=== PATIENT | male | born 1965 | race Caucasian/White ===

== ENCOUNTER 2017-05-01 17:16 | Observation (INO) | payer OTHER, SELFPAY ==
[~2017-05-01 17:16] MED LIST: Iopamidol 370 76% 100 ML VIAL ONE
[2017-05-01 18:44] LABS: #Basophils 0.1 thou/uL (0.0-0.2); #Eosinphils 0.1 thou/uL (0.0-0.7); #Lymphocytes 1.7 thou/uL (1.20-3.40); #Monocytes 0.7 thou/uL (0.11-0.59); #Neutrophils 3.6 thou/uL (1.40-6.50); %Eosinophils 2.2 % (0.0-10.0); %Lymphocytes 26.8 % (21.0-51.0); %Monocytes 10.8 % (0.0-10.0); Hematocrit 47.1 % (42.0-52.0); Mean Platelet Volume 6.5 fL (7.4-10.4); Red Blood Cell (RBC) Count 4.77 mill/uL (4.70-6.10); White Blood Cell (WBC) Count 6.2 thou/uL (4.8-10.8)
[2017-05-01 18:51] LABS: Prothrombin Time 13.2 SEC (12.0-14.7)
[2017-05-01 19:11] LABS: ALT (SGPT) 17 U/L (8-55); AST (SGOT) 18 U/L (5-34); Alkaline Phosphatase 94 U/L (40-150); Anion Gap 14 mmol/L (10-20); BUN (Urea Nitrogen) 15 mg/dL (8.4-25.7); Bilirubin, Total 0.5 mg/dL (0.2-1.2); Calc. Creatinine Clearance 0 mL/min (70-130); Calcium 9.6 mg/dL (7.8-10.44); Carbon Dioxide 23 mmol/L (22-29); Chloride 108 mmol/L (98-107); Estimated GFR-MDRD Greater than 90; Globulin 3.2 g/dL (2.4-3.5); Protein, Total 7.3 g/dL (6.0-8.3)
[2017-05-01 19:16] LABS: Troponin I Less than 0.010 ng/mL (< 0.028)
--- NOTE | 2017-05-01 21:37 | ULT ---
RIGHT LOWER EXTREMITY VENOUS ULTRASOUND: 05/01/17 COMPARISON: None. HISTORY: Right leg pain for two months and right leg is getting progressively more edematous. TECHNIQUE: Multiplanar dietz scale and color doppler images are obtained in a right lower extremity ultrasound. Spectral analysis of the doppler waveforms were performed. FINDINGS: The right common femoral vein, profunda femoral vein, superficial femoral vein, and popliteal vein a re normal in appearance without visible thrombus. These vessels demonstrate normal compression, flow and augmentation. The posterior tibial vein and greater saphenous vein are also patent. IMPRESSION: No evidence of right lower extremity DVT. POS: [facility]
--- NOTE | 2017-05-01 22:15 | CT ---
CTA OF THE CHEST WITH CONTRAST: 05/01/17 COMPARISON: None. HISTORY: Dyspnea. TECHNIQUE: Multiple contiguous axial images were obtained in a CTA of the chest with contrast per pulmonary emb olism protocol. 3D oblique MIP reformats and direct coronal reformats were performed. FINDINGS: The pulmonary arteries are well opacified without filling defects to suggest pulmonary emboli. The h eart is normal in size without focal cardiac abnormality. No hilar or mediastinal lymphadenopathy ar e seen. No pneumothorax or pleural effusion are seen. Emphysematous changes are seen in the lung apices. No suspicious pulmonary nodule is seen. No focal infiltrates are seen in the lungs. The visualized subdiaphragmatic structures are unremarkable. The osseous structures and chest wall s oft tissues are unremarkable. IMPRESSION: 1. No evidence of pulmonary thromboembolism. 2. Emphysema. POS: N[facility]
[2017-05-01 22:16] LABS: Hemoglobin A1c 5.2 % (4.0-6.0)
[2017-05-01 22:24] LABS: Troponin I Less than 0.010 ng/mL (< 0.028)
[2017-05-01] MEDS ORDERED: Acetaminophen 325 MG TAB PO PRN ×2 (22:39→22:50)
[2017-05-01] MEDS ORDERED: Nitroglycerin 0.4 MG TAB (25 Tab Bottle) PO PRN (22:50)
[2017-05-01] MEDS ORDERED: HYDROcodone/Acetaminophen 5/325 mg Tablet PO PRN (22:50)
[2017-05-01] MEDS ORDERED: Bisacodyl 5 MG TAB PO PRN (22:50)
[2017-05-01] MEDS ORDERED: Ondansetron ODT 4 MG TAB PO PRN (22:50)
[2017-05-01 23:07] VITALS: BMI 24.5
[2017-05-02 00:02] LABS: Phosphorus 2.7 mg/dL (2.3-4.7)
[2017-05-02] MEDS ORDERED: ADENOSINE 60 MG/20 ML VIAL ONE (00:50)
[2017-05-02 00:55] LABS: Troponin I Less than 0.010 ng/mL (< 0.028)
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
[2017-05-02 06:19] LABS: Anion Gap 14 mmol/L (10-20); BUN (Urea Nitrogen) 16 mg/dL (8.4-25.7); Calc. Creatinine Clearance 123 mL/min (70-130); Calcium 9.7 mg/dL (7.8-10.44); Carbon Dioxide 24 mmol/L (22-29); Chloride 106 mmol/L (98-107); Cholesterol 161 mg/dl (< 200 Desired); Estimated GFR-MDRD Greater than 90; LDL Cholesterol, Calculated 97 mg/dL
[2017-05-02] MEDS ORDERED: Aspirin 325 MG TAB PO SCH (09:00)
[2017-05-02] MEDS ORDERED: Baclofen 10 MG TAB PO SCH (09:00)
[2017-05-02] MEDS ORDERED: Enoxaparin Sodium 40 MG/0.4 ML SYRINGE SC SCH (09:00)
[2017-05-02] MEDS ORDERED: Gabapentin 300 MG CAP PO SCH (09:00)
[2017-05-02] MEDS ORDERED: Pantoprazole 40 MG GRANULES PACKET PO SCH (09:00)
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
[2017-05-02 15:30] VITALS: BP 135/78; TEMP 97.7
--- NOTE | 2017-05-02 16:32 | NM ---
CARDIAC SPECT: HISTORY: A 51-year-old male with an indeterminate treadmill stress test. Smoker. Family history of coronary artery disease. TECHNIQUE: A myocardial perfusion scan was performed using the single isotope one-day protocol with technetium 99m sestamibi, and 10 millicuries was injected intravenously for the rest exam, followed by 29 rosalino curies for the stress study. Pharmacologic stress with adenosine was monitored and interpreted by Moose Alston. FINDINGS: Homogeneous tracer distribution is seen in the myocardial segments on both stress and rest images wi thout fixed or reversible defects. GATED SPECT LVEF: 57% WALL MOTION EXAM: Normal. IMPRESSION: Normal myocardial perfusion scan. POS: N[facility]
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
--- NOTE | 2017-05-09 13:45 | STRESS ---
Acquisition Time: 2017-05-02 08:43:01 Total Exercise Time: 00:06:53 Test Indications: CHEST PAIN. RULE OUT ACS Medications: Protocol: CANDIDO Max HR: 146 BPM 87% of Pred: 167 BPM Max BP: 188/080 mmHG Max Work Load: 9.6 METS RESTING ECG: SINUS BRADYCARDIA AT 52 BPM SYMPTOMS: LEG PAIN NORMAL BP RESPONSE ECTOPY: FREQUENT PVC'S (VENTRICULAR BIGEMINY WITH EXERTION) INTERPRETATION: INDETERMINATE GXT COMMENTS: PVC'S DURING MAX HEART RATE PRECLUDE ACCURATE EVALUATION OF ST SEGMENTS Confirmed by MADISON WAYNE M.D. ([id number]) on 05/09/2017 1:45:04 PM Referred By: MD Jules BATES Confirmed By:MADISON WAYNE M.D.
--- NOTE | 2017-05-09 13:45 | STRESS ---
Acquisition Time: 2017-05-02 13:06:36 Total Exercise Time: 00:04:00 Test Indications: INDETERMINANT TREADMILL STRESS TEST Medications: Protocol: ADENOSINE Max HR: 088 BPM 52% of Pred: 167 BPM Max BP: 142/090 mmHG Max Work Load: 1.0 METS RESTING ECG: SINUS BRADYCARDIA AT 59 BPM SYMPTOMS: CHEST PAIN APPROPRIATE BP RESPONSE ECTOPY: RARE BIGEMINAL PVC'S ECG STRESS: NO SIGNIFICANT CHANGES INTERPRETATION: NEGATIVE ECG/AWAIT NUCLEAR IMAGES FOR DEFINITIVE DIAGNOSIS Confirmed by MADISON WAYNE M.D. ([id number]) on 05/09/2017 1:45:01 PM Referred By: MD Dario JAY Confirmed By:MADISON WAYNE M.D.
== END 2017-05-02 17:50 | disposition home or self-care (01) ==
LOC: ERS 17:16 → 2SW 22:45
PROVIDERS: ADMIT Family Medicine; ATTEND Family Medicine
DX: R07.89 Other chest pain (principal); I89.0 Lymphedema, not elsewhere classified; G62.9 Polyneuropathy, unspecified; G89.29 Other chronic pain; F17.200 Nicotine dependence, unspecified, uncomplicated; Z88.0 Allergy status to penicillin; Z79.891 Long term (current) use of opiate analgesic; Z79.899 Other long term (current) drug therapy; Z98.890 Other specified postprocedural states; Z82.49 Family history of ischemic heart disease and other diseases of the circulatory system
CPT/HCPCS: 36415; 71275; 78452; 80048; 80053; 80061; 82553; 83036; 83735; 83880; 84100; 84443; 84484; 85025; 85610; 85730; 93005; 93010; 93017; 94760; A9500; G0378; J0153; J1650